=== PATIENT | female | born 2000 | race Caucasian/White ===

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

== ENCOUNTER 2019-02-11 15:43 | Emergency (ER) | payer OTHER, SELFPAY ==
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
[2019-02-11] MEDS ORDERED: Bacitracin Zinc 1 Packet ONE (16:53)
== END 2019-02-11 17:25 | disposition home or self-care (01) ==
LOC: ERS 15:43
DX: S09.90XA Unspecified injury of head, initial encounter (principal); S40.212A Abrasion of left shoulder, initial encounter; F17.210 Nicotine dependence, cigarettes, uncomplicated; F41.9 Anxiety disorder, unspecified; V89.0XXA Person injured in unspecified motor-vehicle accident, nontraffic, initial encounter
CPT/HCPCS: 70450

== ENCOUNTER 2021-06-02 09:34 | Emergency (ER) | payer OTHER | END 2021-06-02 10:20 | disposition home or self-care (01) | LOC: ERS 09:34 | DX: R11.0 Nausea (principal); R52 Pain, unspecified; Z20.822 Contact with and (suspected) exposure to COVID-19; Z79.899 Other long term (current) drug therapy; F17.290 Nicotine dependence, other tobacco product, uncomplicated | CPT/HCPCS: 99283 ==

== ENCOUNTER 2021-11-27 10:24 | Emergency (ER) | payer BC | END 2021-11-27 12:09 | disposition home or self-care (01) | LOC: ERS 10:24 | DX: O20.0 Threatened abortion (principal); Z3A.01 Less than 8 weeks gestation of pregnancy; Z87.891 Personal history of nicotine dependence | CPT/HCPCS: 36415; 84702; 99284 ==